=== PATIENT | female | born 1980 | race Caucasian/White ===

== ENCOUNTER → 2016-08-30 | Outpatient (CLI) | payer OTHER ==
--- NOTE | 2016-08-30 17:12 | MA ---
Screening Digital Mammogram with Digital Breast Tomosynthesis Clinical Indications: Routine screening. Technique: Standard cephalocaudal projections are obtained. Digital breast tomosynthesis was perform ed in the MLO projection with reconstruction at 1.0 mm slice thickness and composite MLO views recons tructed. This examination is processed by the CAD computer aided detection system. Comparison: August 23, 2015. Breast density: D; The breasts are extremely dense, which lowers the sensitivity of mammography. Findings: CAD was reviewed. There are no new masses, new clusters of microcalcifications, or significant axillary lymphadenopathy . Impression: Negative mammogram. BI-RADS 1. Recommendation: Routine screening mammogram is recommended in one year. Dense mammographic pattern limits the sensitivity of mammography in this patient. If there is a clini jose de jesus palpable abnormality, recommend additional imaging with ultrasound if clinically indicated. [facility] will send a result letter to the patient. Negative mammography should not preclude additional workup of a clinically suspicious finding. The patient's information is entered into a reminder system with a target due date for her next mammo gram.
== END ==
LOC: FIMAGING 12:29
PROVIDERS: ATTEND Obstetrics & Gynecology Gynecology
DX: Z12.31 Encounter for screening mammogram for malignant neoplasm of breast (principal)
CPT/HCPCS: G0202

== ENCOUNTER → 2018-09-30 | Outpatient (CLI) | payer OTHER | LOC: FIMAGING 07:36 | PROVIDERS: ATTEND Advanced Practice Midwife | DX: O09.513 Supervision of elderly primigravida, third trimester (principal); Z3A.31 31 weeks gestation of pregnancy ==

== ENCOUNTER 2018-11-27 19:03 | Inpatient (IN) | payer OTHER ==
[2018-11-27] MEDS ORDERED: MISOPROSTOL 200 MCG TAB PR PRN (19:17)
[2018-11-27] MEDS ORDERED: OXYTOCIN/RINGERS LACTATE 1,000 ML IV PRN (19:17)
[2018-11-27] MEDS ORDERED: LIDOCAINE 1% 300 MG/30 ML SDV SC PRN (19:17)
[2018-11-27] MEDS ORDERED: IBUPROFEN 600 MG TAB PO PRN (19:17)
[2018-11-27] MEDS ORDERED: EPSOM SALT 454 GM TP PRN (19:17)
[2018-11-27] MEDS ORDERED: OLIVE OIL 118 ML BTL MISC PRN (19:17)
[2018-11-27] MEDS ORDERED: FAMOTIDINE 20 MG/2 ML SDV IVP ONE (20:15)
[2018-11-27] MEDS ORDERED: TERBUTALINE SULFATE 1 MG/ML VIAL ONE (20:23)
[2018-11-27] MEDS ORDERED: MISOPROSTOL 200 MCG TAB ONE (20:23)
[2018-11-27] MEDS ORDERED: OXYTOCIN 10 UNIT/ML VIAL ONE (20:23)
[2018-11-27] MEDS ORDERED: OLIVE OIL 118 ML BTL MISC ONE (20:23)
[2018-11-27] MEDS ORDERED: AMMONIA AROMATIC 1 EACH AMP IH ONE (20:23)
[2018-11-27] MEDS ORDERED: LIDOCAINE 1% 300 MG/30 ML SDV ONE (20:23)
[2018-11-27 20:27] LABS: PLATELET COUNT 230 10^3/uL (150-400)
[2018-11-27] MEDS: LR 1,000 ML IV PRN (20:30)
--- NOTE | 2018-11-27 21:38 | PDGENHP ---
History and Physical History and Physical: Care: [facility] HPI: Patient is a [id number] with IUP@ 39-6 weeks that presents to L&D with complaints of contractions since 1400. She states since 1600 they have increased in intensity and frequency. She denies any LOF, vb. reports +FM EDC: 11/28/18 which is based on Ultrasound at 7weeks. Her is complicated by: ALANNAH @ 29wks, AMA, anemia, Review of Systems: Constitutional: Denies any fever, chills, or fatigue HEENT: denies any visual changes, difficulty swallowing, hearing loss Cardiovascular: Denies any chest pain, palpitations, leg swelling Respiratory: denies any cough, wheezing, or shortness of breathe GI: Denies any nausea, vomiting, diarrhea, constipation : denies any dysuria, urgency, frequency, vaginal bleeding Musculoskeletal: denies any muscle or bone pain Skin: denies any rashes Neuro: denies any headache, seizures, lightheadedness, dizziness, or loss of consciousness Psychiatric: denies any depression, anxiety, or SI/HI thoughts HISTORY: Previous OB history: G1 Past medical history: none Past surgical history: oral surgery Social: Denies any alcohol, tobacco, or drug use. , Ebenezer. works as speech therapist Family history: breast cancer Medications: PNV, iron Allergies (list reaction): NKDA LABS: Rh:O+ ABS: Neg Rubella: Immune HbsAg: NR HIV: NR VDRL: NR 1hr: 91 GC: Neg Chlamydia: Neg Pap: Normal GBS: negative BMI: (prepreg) 20 PHYSICAL EXAM: Constitutional: WN, A&Ox3 HEENT: normocephalic atraumatic, supple Skin: Warm, dry, intact Heart: RRR, no murmur Chest: CTA-B Abdomen: Soft, nontender, gravid SVE: /-1 Extremities: trace edema, negative homans sign Neuro: grossly normal Psych: normal affect assessment: FHT baseline 155 +accels, no decels, moderate variability Contractions: toco q 3-5 Assessment: * 37yo with IUP@ 39-6wks * Early/prodromal labor * GBS Negative * Cat 1 FHR Tracing Plan: * Admit to L&D * consider morphine sleep vs epidural * reassess 4hr/pRN * IA per protocol Today's visit was approximately 30 min, of which >50% of visit 25 min, was spent face to face with pt on direct counseling/coordination of care.
[2018-11-27] MEDS ORDERED: PROMETHAZINE HCL 25 MG/ML INJ IVP ONE (21:39)
--- NOTE | 2018-11-27 23:58 | OBPROG ---
Labor Progress Note Assessment/Plan: Assessment: 37yo with IUP@39-6wks Prodromal labor Therapeutic rest/morphine sleep GBS Negative cat 1 FHR Tracing Plan: cont IA q 30min reassess in morning/PRN Subjective/Intrapartum Course: Pt breathing through each contraction. She is resting in between contractions . She denies any LOF, VB. She reports pain with contractions 01/26- improved since pain medications. 11/28/18 00:38 Objective: 11/27/18 20:00 Patient ABO/Rh O POSITIVE 11/27/18 20:00 - SVE Dilation (cm): 3 Effacement (%): 90 Station: -1 - Contraction Pattern Assessment Current Contraction Pattern: Regular Oxytocin Orders Assessment - Pre-Induction/Augmentation Assessment Gestational Age: 39 week(s) and 6 day(s) ICD10 Worksheet Patient Problems: Problems Problem Status Onset EARLY LABOR Acute
--- NOTE | 2018-11-28 02:33 | OBPROG ---
Labor Progress Note Assessment/Plan: Assessment: 37yo with IUP@39-6wks Prodromal labor Therapeutic rest/morphine sleep GBS Negative Plan: cont IA q 30min, will get NST @ 0600 reassess in morning/PRN 11/28/18 02:30 Subjective/Intrapartum Course: Pt breathing through each contraction. She is resting in between contractions . She denies any LOF, VB. She reports pain with contractions 01/26- improved since pain medications. 11/28/18 00:38 11/28/18 02:31 Pt stating she would like to be checked. She denies any pressure or increasing pain. She reports continuous LOF- which is clear. Family and contract associate @ BS, supportive. She is able to rest in between contractions. Objective: 11/27/18 20:00 Patient ABO/Rh O POSITIVE 11/27/18 20:00 - SVE Dilation (cm): 4 Effacement (%): 90 Station: 0 Membranes: SROM Amniotic Fluid Color: Clear - Contraction Pattern Assessment Current Contraction Pattern: Regular CNM Assessment - Intermittent Auscultation Auscultation Method Used: Doppler Heart Rate Auscultated (bpm): 140 FHR Acceleration(s) Auscultated: Yes FHR Deceleration(s) Auscultated: No Oxytocin Orders Assessment - Pre-Induction/Augmentation Assessment Gestational Age: 39 week(s) and 6 day(s) ICD10 Worksheet Patient Problems: Problems Problem Status Onset EARLY LABOR Acute
--- NOTE | 2018-11-28 07:44 | OBPROG ---
Labor Progress Note Assessment/Plan: Assessment: 37yo with IUP@39-6wks early labor cat 1 FHR tracing GBS Negative SROM- clear Plan: continue position changes pain management PRN reassess 2-4hr/PRN Subjective/Intrapartum Course: Pt breathing through each contraction. She is resting in between contractions . She denies any LOF, VB. She reports pain with contractions 01/26- improved since pain medications. 11/28/18 00:38 11/28/18 02:31 Pt stating she would like to be checked. She denies any pressure or increasing pain. She reports continuous LOF- which is clear. Family and senior electronics technician @ BS, supportive. She is able to rest in between contractions. 11/28/18 07:44 Pt breathing through contractions. states she was able to get some rest last night with meds. She is feeling increasing pressure and has urge to push with contractions. Family/senior electronics technician @ BS and supportive. Objective: 11/27/18 20:00 Patient ABO/Rh O POSITIVE 11/27/18 20:00 - SVE Dilation (cm): 6 Station: 0 Membranes: SROM Amniotic Fluid Color: Clear - Contraction Pattern Assessment Current Contraction Pattern: Regular - FHR Assessment Cervantes FHR (bpm): 145 FHR Pattern Variability: Moderate FHR Category: 1 Oxytocin Orders Assessment - Pre-Induction/Augmentation Assessment Gestational Age: 39 week(s) and 6 day(s) ICD10 Worksheet Patient Problems: Problems Problem Status Onset EARLY LABOR Acute
--- NOTE | 2018-11-28 09:11 | OBPROG ---
Labor Progress Note Assessment/Plan: Assessment: Plan: Subjective/Intrapartum Course: Pt breathing through each contraction. She is resting in between contractions . She denies any LOF, VB. She reports pain with contractions 01/26- improved since pain medications. 11/28/18 00:38 11/28/18 02:31 Pt stating she would like to be checked. She denies any pressure or increasing pain. She reports continuous LOF- which is clear. Family and senior technical writer @ BS, supportive. She is able to rest in between contractions. 11/28/18 07:44 Pt breathing through contractions. states she was able to get some rest last night with meds. She is feeling increasing pressure and has urge to push with contractions. Family/senior technical writer @ BS and supportive. 11/28/18 09:10 Coping well with ctx. FOB mother and senior technical writer at bedside for support. Urge to push with contractions. Objective: 11/27/18 20:00 Patient ABO/Rh O POSITIVE 11/27/18 20:00 - SVE Dilation (cm): 8 Effacement (%): 90 Station: +1 Membranes: SROM Amniotic Fluid Color: Clear - Contraction Pattern Assessment Current Contraction Pattern: Regular - FHR Assessment Cervantes FHR (bpm): 150 FHR Pattern Variability: Moderate FHR Category: 1 Oxytocin Orders Assessment - Pre-Induction/Augmentation Assessment Gestational Age: 39 week(s) and 6 day(s) ICD10 Worksheet Patient Problems: Problems Problem Status Onset EARLY LABOR Acute
[2018-11-28] MEDS ORDERED: OXYTOCIN/RINGERS LACTATE 30 UNIT/500 ML BAG IV ONE (10:02)
[2018-11-28] MEDS: LR 1,000 ML IV PRN (10:20)
[2018-11-28] MEDS ORDERED: ACETAMINOPHEN 500 MG TAB ONE (10:36)
[2018-11-28] MEDS ORDERED: ACETAMINOPHEN 500 MG TAB PO ONE (11:15)
[2018-11-28] MEDS ORDERED: OXYTOCIN/LR *STANDARD DOSE PROTOCOL IV SCH (11:30)
--- NOTE | 2018-11-28 11:42 | OBPROG ---
Labor Progress Note Assessment/Plan: Assessment: Plan: Subjective/Intrapartum Course: Pt breathing through each contraction. She is resting in between contractions . She denies any LOF, VB. She reports pain with contractions 01/26- improved since pain medications. 11/28/18 00:38 11/28/18 02:31 Pt stating she would like to be checked. She denies any pressure or increasing pain. She reports continuous LOF- which is clear. Family and pattern ruler @ BS, supportive. She is able to rest in between contractions. 11/28/18 07:44 Pt breathing through contractions. states she was able to get some rest last night with meds. She is feeling increasing pressure and has urge to push with contractions. Family/pattern ruler @ BS and supportive. 11/28/18 09:10 Coping well with ctx. FOB mother and pattern ruler at bedside for support. Urge to push with contractions. 11/28/18 11:39 Coping well with ctx. support team remains at bedside, temp 101.2 approx 1 hour ago, tylenol given, temp 100 at this time. pitocin augmentation initiated d /t irregular ctx pattern. Objective: 11/27/18 20:00 Patient ABO/Rh O POSITIVE 11/27/18 20:00 - SVE Dilation (cm): 8 Effacement (%): 80 Station: 0 Membranes: SROM Amniotic Fluid Color: Clear - Contraction Pattern Assessment Current Contraction Pattern: Regular (2-4 min) - FHR Assessment Cervantes FHR (bpm): 150 FHR Pattern Variability: Moderate FHR Category: 1 (occasional early decelerations with ctx) Oxytocin Orders Assessment - Pre-Induction/Augmentation Assessment Gestational Age: 39 week(s) and 6 day(s) ICD10 Worksheet Patient Problems: Problems Problem Status Onset EARLY LABOR Acute Prolonged labor with first Acute - ICD10 Problem Qualifiers (1) Prolonged labor with first
[2018-11-28] MEDS ORDERED: LR 500 ML IV PRN (11:48)
[2018-11-28] MEDS ORDERED: METHYLERGONOVINE MAL 0.2 MG/ML INJ ONE (14:29)
--- NOTE | 2018-11-28 15:06 | OBDEL ---
Info Type: Vaginal Presentation at Delivery: Vertex L&D Analgesia/Anesthesia Type: None GBS+: No Intrapartum Medications: Generic Name Dose Route Start Last Admin Trade Name Freq PRN Reason Stop Dose Admin Lactated Ringer's 1,000 mls @ 0 mls/hr 11/27/18 19:17 11/28/18 10:20 Lr IV 11/28/18 19:16 1,000 mls PRN PRN Administration SEE PROTOCOL CONDITIONS Protocol Per Protocol Oxytocin/Lactated Ringer's 500 mls @ 0 mls/hr 11/28/18 11:30 11/28/18 10:20 Pitocin 30 Units/Lr (Premix) IV 05/27/19 11:29 500 mls CONT THOMAS Administration Protocol Per Protocol Lynco Oil 118 ml 11/27/18 19:17 11/28/18 14:00 Sweet Oil MISC 05/26/19 19:16 118 ml ONCE PRN Administration perineal massage Discontinued Medications Generic Name Dose Route Start Last Admin Trade Name Freq PRN Reason Stop Dose Admin Acetaminophen 1,000 mg 11/28/18 11:15 11/28/18 10:39 Tylenol PO 11/28/18 11:16 1,000 mg ONCE ONE Administration Famotidine 20 mg 11/27/18 20:15 11/27/18 20:20 Pepcid IVP 11/27/18 20:16 20 mg ONCE ONE Administration Misoprostol 800 - 1,000 mcg 11/27/18 19:17 11/28/18 14:28 Cytotec MN 1,000 mcg ONCE PRN Administration Vaginal Atony/Bleeding Morphine Sulfate 5 mg 11/27/18 21:45 11/27/18 22:00 Morphine IVP 11/27/18 21:46 5 mg ONCE ONE Administration Morphine Sulfate 10 mg 11/27/18 21:45 11/27/18 22:15 Morphine IM 11/27/18 21:46 10 mg ONCE ONE Administration Promethazine HCl 25 mg 11/27/18 21:39 11/27/18 22:06 Phenergan IVP 11/27/18 21:40 25 mg ONCE ONE Administration - Hospital Course Intrapartum: Pt breathing through each contraction. She is resting in between contractions . She denies any LOF, VB. She reports pain with contractions 01/26- improved since pain medications. 11/28/18 00:38 11/28/18 02:31 Pt stating she would like to be checked. She denies any pressure or increasing pain. She reports continuous LOF- which is clear. Family and church worker @ BS, supportive. She is able to rest in between contractions. 11/28/18 07:44 Pt breathing through contractions. states she was able to get some rest last night with meds. She is feeling increasing pressure and has urge to push with contractions. Family/church worker @ BS and supportive. 11/28/18 09:10 Coping well with ctx. FOB mother and church worker at bedside for support. Urge to push with contractions. 11/28/18 11:39 Coping well with ctx. support team remains at bedside, temp 101.2 approx 1 hour ago, tylenol given, temp 100 at this time. pitocin augmentation initiated d /t irregular ctx pattern. 11/28/18 15:03 cervix manually reduced at approximately 1220, then patient pushed well after that procedure Indications for Delivery: Spontaneous Labor, SROM Vaginal Delivery - Delivery Provider Delivery Physician/CNM: Soledad Peralta - Labor and Delivery Onset of Contractions Date: 11/27/18 Onset of Contractions Time: 16:00 Onset of Contractions Type: Augmented Rupture of Membranes Date: 11/27/18 Rupture of Membranes Time: 22:45 Rupture of Membranes Type: Spontaneous Amniotic Fluid Color: Clear Dilation Complete Date: 11/28/18 Dilation Complete Time: 12:25 Placenta Delivery Date: 11/28/18 Placenta Delivery Time: 14:23 Total Hours of Labor: 22 Laceration: 1st Degree Vaginal Sponge Count Correct: Yes Vaginal Needle Count Correct: Yes Vaginal Sweep Performed: Yes EBL: 450 Delivery Events: Retained Placenta (Dr. George called for manual removal of placenta) Delivery Comment: head delivered over intact perineum. L hand noted by face, shoulders and body followed atraumatically with maternal pushing effort. - Medications Labor Augmentation/Induction Methods Used: Pitocin Labor Augmentation/Induction Indication: Inadequate Contraction Frequency, Inadequate Contraction Strength Data MAXIMO: 11/28/18 Gestational Age: 40 week(s) and 0 day(s) Cervantes Delivery Date: 11/28/18 Delivery Time: 13:52 Sex of Infant: Female Score (1 Min): 8 Score (5 Min): 9 ICD10 Worksheet Patient Problems: Problems Problem Status Onset EARLY LABOR Acute (normal spontaneous vaginal delivery) Acute Prolonged labor with first Acute Retained placenta Acute - ICD10 Problem Qualifiers (1) Prolonged labor with first (2) (normal spontaneous vaginal delivery) (3) Retained placenta
[2018-11-28] MEDS ORDERED: ceFAZolin 2 GM/DEXTROSE 100 ML IV ONE (15:12)
--- NOTE | 2018-11-28 17:37 | PDCONSULT ---
Counter Intelligence Technician Note: Called by PREMA Peralta about 30 min after , for retained placenta - 37 yo primip. She gave me verbal consent to proceed with removal of the placenta. On exam - placenta partially through the cervix. With gentle traction on the cord, was able to milk the placenta through the cervix, and it delivered in entirety - appeared complete upon inspection. Manual sweep of the lower uterine segment to remove any remaining membrane fragments. Bimanual massage of uterus performed. Atony still noted. Bladder catheterized with red rubber cath for 500ml. 1000mcg misoprostil placed rectally. Gloves changed and bimanual massage performed again. Atony resolved and minimal further bleeding. Pt was without any anesthetic, and tolerated all very well. Small periurethral laceration was not hemostatic - to be repaired by Soledad Peralta, who resumed care of patient. REcommended 2 gm of Ancef IV for manual exploration. Yajaira George MD, FACOG
[2018-11-28] MEDS: ACETAMINOPHEN 325 MG TAB PO PRN ×2 (17:56→23:23)
[2018-11-28] MEDS: DOCUSATE SODIUM 100 MG CAP PO PRN (23:23)
[2018-11-28] MEDS: IBUPROFEN 600 MG TAB PO PRN (23:23)
[2018-11-29] MEDS: IBUPROFEN 600 MG TAB PO PRN ×2 (08:47→18:15)
[2018-11-29] MEDS: DOCUSATE SODIUM 100 MG CAP PO PRN (08:47)
[2018-11-29] MEDS: ACETAMINOPHEN 325 MG TAB PO PRN ×2 (08:47→18:14)
[2018-11-29] MEDS ORDERED: EPSOM SALT 454 GM TP ONE (08:56)
--- NOTE | 2018-11-29 12:51 | OBPP ---
Progress Note Assessment/Plan: Assessment: normal PP progress breast feeding well Plan: 11/29/18 12:49 d/c home tomorrow Subjective/ Course: 11/29/18 12:49 pt reports breast feeding well, voiding with minimal pain, bleeding wnl Objective: 11/27/18 20:00 Patient ABO/Rh O POSITIVE 11/27/18 20:00 Temp Pulse Resp BP Pulse Ox 36.3 C 61 14 87/55 L 96 11/29/18 09:00 11/29/18 09:00 11/29/18 09:00 11/29/18 09:00 11/28/18 19:31 VSS Uterine Position/Fundal Height: At Umbilicus Uterine Tone: Firm
[2018-11-29 21:01] VITALS: BP 82/56
[2018-11-30] MEDS: ACETAMINOPHEN 325 MG TAB PO PRN ×2 (03:28→10:07)
[2018-11-30] MEDS: IBUPROFEN 600 MG TAB PO PRN ×2 (03:28→10:07)
--- NOTE | 2018-11-30 08:42 | OBGCSDC ---
General Delivery Information - General Info : 1 Para: 1 Abortions: 0 Type: Vaginal L&D Analgesia/Anesthesia Type: IV Narcotics Admission Date: 11/27/18 Labs: Patient ABO/Rh O POSITIVE 11/27/18 20:00 Hct 35.3 % (38.0-47.0) L 11/27/18 20:00 - Hospital Course Intrapartum: Pt breathing through each contraction. She is resting in between contractions . She denies any LOF, VB. She reports pain with contractions 01/26- improved since pain medications. 11/28/18 00:38 11/28/18 02:31 Pt stating she would like to be checked. She denies any pressure or increasing pain. She reports continuous LOF- which is clear. Family and pumper gager apprentice @ BS, supportive. She is able to rest in between contractions. 11/28/18 07:44 Pt breathing through contractions. states she was able to get some rest last night with meds. She is feeling increasing pressure and has urge to push with contractions. Family/pumper gager apprentice @ BS and supportive. 11/28/18 09:10 Coping well with ctx. FOB mother and pumper gager apprentice at bedside for support. Urge to push with contractions. 11/28/18 11:39 Coping well with ctx. support team remains at bedside, temp 101.2 approx 1 hour ago, tylenol given, temp 100 at this time. pitocin augmentation initiated d /t irregular ctx pattern. 11/28/18 15:03 cervix manually reduced at approximately 1220, then patient pushed well after that procedure : 11/29/18 12:49 pt reports breast feeding well, voiding with minimal pain, bleeding wnl 11/30/18 08:41 Breast feeding well, voiding, flatus, no bowel movement yet, bleeding is automotive service cashier today. Vaginal - Delivery Provider Delivery Physician/CNM: Soledad Peralta - Diagnosis Labor: Augmented Rupture of Membranes Type: Spontaneous Amniotic Fluid Color: Clear Laceration: 1st Degree Delivery Events: Retained Placenta (Dr. George called for manual removal of placenta) - Delivery EBL: 450 [place] Data MAXIMO: 11/28/18 Gestational Age: 40 week(s) and 2 day(s) Cervantes Delivery Date: 11/28/18 Delivery Time: 13:52 Sex of Infant: Female Weight (gm): 3785 g Score (1 Min): 8 Score (5 Min): 9 Discharge Information - Discharge Information Condition: Good Instruction/Follow Up: Two Weeks, Four Weeks, Six Weeks
[2018-11-30] MEDS: DOCUSATE SODIUM 100 MG CAP PO PRN (10:07)
== END 2018-11-30 12:40 | disposition home or self-care (01) | DRG 807 ==
LOC: FLD 19:03 → FOB 11-28 17:30 → FNSY 11-28 18:23 → FOB 11-28 19:10
PROVIDERS: ADMIT Advanced Practice Midwife; ATTEND Advanced Practice Midwife
DX: O73.0 Retained placenta without hemorrhage (principal); Z37.0 Single live birth; Z3A.39 39 weeks gestation of pregnancy; O70.0 First degree perineal laceration during delivery
CPT/HCPCS: J0690; J2210; J2270; J2550; J2590; J3105

== ENCOUNTER → 2018-12-16 | Outpatient (CLI) | payer OTHER | LOC: FLACT 14:05 | PROVIDERS: ATTEND Advanced Practice Midwife | DX: Z39.1 Encounter for care and examination of lactating mother (principal) ==